=== PATIENT | male | born 1990 | race Caucasian/White ===

== ENCOUNTER 2016-08-12 20:03 | Emergency (ER) | payer MEDICAID ==
[~2016-08-12] VITALS: Ht 182.9 cm; Wt 81.2 kg
[~2016-08-12 20:03] MED LIST: HYDR50TA13 PO; OXYC5TAB3 PO
[2016-08-12 22:11] VITALS: BP 133/73
== END 2016-08-12 22:13 | disposition home or self-care (01) ==
LOC: ED 21:50
DX: F51.01 Primary insomnia (principal)
CPT/HCPCS: 99283

== ENCOUNTER 2016-08-23 23:28 | Emergency (ER) | payer MEDICAID ==
[~2016-08-23] VITALS: Ht 182.9 cm; Wt 81.0 kg
[2016-08-23 23:29] VITALS: BP 137/96
[2016-08-24] MEDS ORDERED: OXYcodone/APAP 5/325MG TABLET ONE (00:23)
[2016-08-24] MEDS ORDERED: OXYcodone/APAP 5/325MG TABLET PO ONE (00:30)
== END 2016-08-24 00:33 | disposition home or self-care (01) ==
LOC: ED 23:59
DX: K04.7 Periapical abscess without sinus (principal)
CPT/HCPCS: 41800; 99284

== ENCOUNTER 2016-08-25 11:20 | Emergency (ER) | payer MEDICAID ==
[~2016-08-25] VITALS: Ht 182.9 cm; Wt 77.8 kg
[2016-08-25 11:22] VITALS: BP 134/88
[2016-08-25] MEDS ORDERED: BUPIVACAINE/PF 0.5% ONE (11:42)
== END 2016-08-25 12:20 | disposition home or self-care (01) ==
LOC: ED 12:07
DX: K04.7 Periapical abscess without sinus (principal); Z87.891 Personal history of nicotine dependence; Z90.49 Acquired absence of other specified parts of digestive tract
CPT/HCPCS: 41800; 99283

== ENCOUNTER 2016-09-12 09:16 | Observation (INO) | payer MEDICAID ==
[~2016-09-12] VITALS: Ht 182.9 cm; Wt 74.9 kg
[2016-09-12 10:01] LABS: ASPARTATE AMINO TRANSFERASE 20 U/L (15-37); BLOOD UREA NITROGEN 11 mg/dL (7-18)
[2016-09-12 10:06] LABS: ACETAMINOPHEN < 2 mcg/mL (10-30)
[2016-09-12 11:08] LABS: DAU SCREEN DISCLAIMER
[2016-09-12 12:57] VITALS: BP 124/76
[2016-09-12] MEDS ORDERED: ACETAMINOPHEN 325 MG TABLET PO PRN (16:30)
[2016-09-12] MEDS ORDERED: LORazepam 1MG TABLET PO PRN (16:30)
[2016-09-12] MEDS ORDERED: ENOXAPARIN 40 MG/0.4 ML SQ SCH (16:30)
[2016-09-12] MEDS ORDERED: NICOTINE 7 MG/24 HR PATCH.TD24 TD SCH (16:30)
[2016-09-13] MEDS ORDERED: BUPROPION SR 150 MG TABLET PO SCH (09:00)
== END 2016-09-12 20:14 ==
LOC: ED 10:54 → EDIP 12:52
PROVIDERS: ADMIT Internal Medicine; ATTEND Internal Medicine
DX: R45.851 Suicidal ideations (principal); F19.10 Other psychoactive substance abuse, uncomplicated; F11.20 Opioid dependence, uncomplicated; F41.0 Panic disorder [episodic paroxysmal anxiety]; F41.9 Anxiety disorder, unspecified; F17.210 Nicotine dependence, cigarettes, uncomplicated; Z59.0 Homelessness
CPT/HCPCS: 36415; 80053; 80307; 80329; 85025; 99285; G0378; G0480

== ENCOUNTER 2016-09-24 16:45 | Observation (INO) | payer MEDICAID ==
[~2016-09-24] VITALS: Ht 172.7 cm; Wt 75.0 kg
[2016-09-24 19:31] LABS: HEMATOCRIT 47.5 % (39.2-51.8); HEMOGLOBIN 15.7 g/dL (13.7-18.0); WHITE BLOOD COUNT 10.3 x10^3/uL (3.4-10)
[2016-09-24 19:45] LABS: ASPARTATE AMINO TRANSFERASE 19 U/L (15-37); BLOOD UREA NITROGEN 12 mg/dL (7-18)
[2016-09-24 19:48] LABS: ACETAMINOPHEN < 2 mcg/mL (10-30)
[2016-09-24 20:19] LABS: DAU SCREEN DISCLAIMER
[2016-09-24] MEDS ORDERED: ONDANSETRON ODT 4 MG PO PRN (21:00)
[2016-09-24] MEDS ORDERED: POLYETHYLENE GLYCOL 17 GM PACKET PO PRN (21:00)
[2016-09-24] MEDS ORDERED: DOCUSATE 100 MG CAPSULE PO PRN (21:00)
[2016-09-24] MEDS ORDERED: NICOTINE 7 MG/24 HR PATCH.TD24 TD SCH ×2 (21:00)
[2016-09-24] MEDS ORDERED: BISACODYL 10 MG SUPP PR PRN (21:00)
[2016-09-24] MEDS ORDERED: LORazepam 1MG TABLET ONE (21:28)
[2016-09-24] MEDS ORDERED: LORazepam 1MG TABLET PO PRN ×2 (21:30)
[2016-09-24] MEDS ORDERED: LORazepam 2 MG/ML, 1ML IM PRN ×2 (21:30)
[2016-09-24] MEDS ORDERED: TEMAZEPAM 15 MG CAPSULE PO PRN (21:30)
[2016-09-24 22:29] VITALS: BP 95/60
[2016-09-25 08:00] VITALS: BP 101/56
[2016-09-25] MEDS ORDERED: LORazepam 0.5MG TABLET ONE ×2 (09:48→16:51)
[2016-09-25] MEDS: LORazepam 1MG TABLET PO PRN ×2 (09:49→16:53)
[2016-09-25] MEDS ORDERED: LORazepam 2 MG/ML, 1ML IM PRN (13:30)
[2016-09-25] MEDS ORDERED: NICOTINE 7 MG/24 HR PATCH.TD24 TD SCH (19:00)
[2016-09-25 19:27] VITALS: BP 113/62
[2016-09-26 08:48] VITALS: BP 116/67
[2016-09-26] MEDS: LORazepam 1MG TABLET PO PRN ×2 (09:41→15:35)
== END 2016-09-26 16:43 ==
LOC: ED 17:59 → EDIP 18:52 → 3E 22:09
PROVIDERS: ADMIT Internal Medicine; ATTEND Internal Medicine
DX: R45.851 Suicidal ideations (principal); F15.10 Other stimulant abuse, uncomplicated; F12.90 Cannabis use, unspecified, uncomplicated; F32.9 Major depressive disorder, single episode, unspecified; F41.1 Generalized anxiety disorder; F17.210 Nicotine dependence, cigarettes, uncomplicated; Z59.0 Homelessness
CPT/HCPCS: 36415; 80053; 80307; 80329; 81001; 84439; 84443; 85025; 99285; G0378; G0480

== ENCOUNTER 2017-06-04 16:18 | Emergency (ER) | payer MEDICAID ==
[~2017-06-04] VITALS: Ht 182.9 cm; Wt 108.0 kg
[~2017-06-04 16:18] MED LIST changes: +HALO5TAB5 PO; +QUET200T4 PO
[2017-06-04 16:20] VITALS: BP 144/80
[2017-06-04] MEDS ORDERED: IBUPROFEN 800 MG TABLET PO STA (16:40)
[2017-06-04] MEDS ORDERED: IBUPROFEN 200 MG TABLET ONE (16:43)
== END 2017-06-04 17:21 | disposition home or self-care (01) ==
LOC: ED 17:20
DX: K08.89 Other specified disorders of teeth and supporting structures (principal); F17.210 Nicotine dependence, cigarettes, uncomplicated; Z90.49 Acquired absence of other specified parts of digestive tract
CPT/HCPCS: 99283

== ENCOUNTER 2017-06-08 07:47 | Emergency (ER) | payer MEDICAID ==
[~2017-06-08] VITALS: Ht 182.9 cm; Wt 107.0 kg
[2017-06-08 07:49] VITALS: BP 134/86
== END 2017-06-08 08:31 | disposition home or self-care (01) ==
LOC: ED 08:21
DX: K02.9 Dental caries, unspecified (principal); F17.210 Nicotine dependence, cigarettes, uncomplicated
CPT/HCPCS: 99283

== ENCOUNTER 2018-05-31 09:17 | Day surgery (SDC) | payer MEDICAID ==
[~2018-05-31] VITALS: Ht 182.9 cm; Wt 101.7 kg
[~2018-05-31 09:17] MED LIST changes: +BACITRACIN OINT 500U/GM, 15 GM ONE; +DIVA500T2 PO; +EPINEPHRINE TOPICAL SOLN 1 MG/ML, 30ML ONE; +FLUORESCEIN SODIUM 500 MG/5 ML ONE; +LIDOCAINE 1%-EPI 1:100K, 20ML ONE; +OXYMETAZOLINE NASAL SPRAY 0.05%, 15ML ONE
[2018-05-31] MEDS ORDERED: LACTATED RINGERS 1,000 ML IV SCH (09:41)
[2018-05-31] MEDS ORDERED: NONE PER PT (09:41)
[2018-05-31] MEDS ORDERED: FENTANYL PF 250 MCG/5ML ONE (09:55)
[2018-05-31] MEDS ORDERED: MIDAZOLAM 1 MG/ML, 2ML ONE (09:55)
[2018-05-31] MEDS ORDERED: GABAPENTIN 300 MG CAPSULE PO ONE (10:00)
[2018-05-31 10:09] VITALS: BP 122/83
[2018-05-31] MEDS ORDERED: CLINDAMYCIN 150 MG/ML, 6ML ONE (10:22)
[2018-05-31] MEDS ORDERED: SUGAMMADEX 200 MG/2 ML IVPush ONE (10:22)
[2018-05-31] MEDS ORDERED: PROPOFOL 10 MG/ML, 20ML ONE (10:26)
[2018-05-31] MEDS ORDERED: ONDANSETRON 2MG/ML, 2ML ONE (10:26)
[2018-05-31] MEDS ORDERED: DEXAMETHASONE 4 MG/ML, 1ML ONE (10:26)
[2018-05-31] MEDS ORDERED: METOPROLOL 1 MG/ML, 5ML ONE (10:26)
[2018-05-31] MEDS ORDERED: ACETAMINOPHEN 325 MG TABLET PO PRN (11:00)
[2018-05-31] MEDS ORDERED: MEPERIDINE/PF 25MG/0.5ML IVPush PRN (11:00)
[2018-05-31] MEDS ORDERED: HYDROmorphone 2 MG/ML, 1ML IVPush PRN (11:00)
[2018-05-31] MEDS ORDERED: HALOPERIDOL 5 MG/ML IV PRN (11:00)
[2018-05-31] MEDS ORDERED: OXYcodone 5 MG/5 ML ORAL.SOL UDC PO PRN (11:00)
[2018-05-31] MEDS ORDERED: PROMETHAZINE 25 MG/ML, 1ML IV PRN (11:00)
[2018-05-31] MEDS ORDERED: LORazepam 2 MG/ML, 1ML IVPush PRN (11:00)
[2018-05-31] MEDS ORDERED: MEPERIDINE/PF 50 MG/ML ONE (12:30)
[2018-05-31] MEDS ORDERED: FENTANYL PF 100 MCG/2ML ONE (12:51)
[2018-05-31] MEDS ORDERED: OXYcodone 5 MG/5 ML ORAL.SOL UDC ONE (12:51)
[2018-05-31] MEDS: FENTANYL PF 100 MCG/2ML IV PRN ×2 (13:05→13:19)
== END 2018-05-31 15:45 | disposition home or self-care (01) ==
LOC: OUT 09:17
PROVIDERS: ATTEND Otolaryngology
DX: J32.0 Chronic maxillary sinusitis (principal); J32.1 Chronic frontal sinusitis; J32.2 Chronic ethmoidal sinusitis; J32.4 Chronic pansinusitis; K04.4 Acute apical periodontitis of pulpal origin; J34.3 Hypertrophy of nasal turbinates; G43.909 Migraine, unspecified, not intractable, without status migrainosus; F41.9 Anxiety disorder, unspecified; Z87.891 Personal history of nicotine dependence
CPT/HCPCS: 30140; 31240; 31253; 31257; 31267; 61782; 87070; 87075; 87205; 88304; 88305; 88311; J1100; J2175; J2250; J2405; J2704; J3010; J3490; J7120

== ENCOUNTER 2019-02-28 09:35 | Inpatient (IN) | payer MEDICAID ==
[~2019-02-28] VITALS: Ht 182.9 cm; Wt 92.9 kg
[~2019-02-28 09:35] MED LIST changes: -BACITRACIN OINT 500U/GM, 15 GM ONE; -EPINEPHRINE TOPICAL SOLN 1 MG/ML, 30ML ONE; -FLUORESCEIN SODIUM 500 MG/5 ML ONE; -LIDOCAINE 1%-EPI 1:100K, 20ML ONE; +NONE PER PT; -OXYMETAZOLINE NASAL SPRAY 0.05%, 15ML ONE
[2019-02-28 09:44] VITALS: BP 122/76
[2019-02-28] MEDS ORDERED: BISACODYL 10 MG SUPP PR PRN (10:00)
[2019-02-28] MEDS ORDERED: ONDANSETRON ODT 4 MG PO PRN (10:00)
[2019-02-28] MEDS ORDERED: DOCUSATE 100 MG CAPSULE PO PRN (10:00)
[2019-02-28] MEDS ORDERED: POLYETHYLENE GLYCOL 17 GM PACKET PO PRN (10:00)
[2019-02-28 11:26] LABS: CHOL/HDL RATIO 4.3; FREE T4 (FREE THYROXINE) 1.46 ng/dL (0.76-1.46); LDL/HDL RATIO 2.8 (0.5-3.0)
[2019-02-28 12:13] VITALS: BP 122/76
[2019-02-28] MEDS: NICOTINE GUM 2 MG BC PRN ×4 (13:49→20:33)
[2019-02-28 15:15] LABS: CULTURE INDICATED? YES; MICROSCOPIC INDICATED
[2019-02-28] MEDS ORDERED: QUETIAPINE 25MG TABLET PO SCH (16:00)
[2019-02-28] MEDS: BUPRENORPHINE/NALOXONE 2-0.5MG SL SCH ×2 (16:34→20:32)
[2019-02-28 19:15] VITALS: BP 104/66
[2019-02-28] MEDS: QUETIAPINE 100MG TABLET PO SCH (20:33)
[2019-03-01] MEDS: NICOTINE GUM 2 MG BC PRN ×8 (01:19→23:26)
[2019-03-01] MEDS: ACETAMINOPHEN 325 MG TABLET PO PRN ×2 (05:11→08:34)
[2019-03-01 05:18] LABS: BASOPHILS # (AUTO) 0.05 x10^3/uL (0-0.1); BASOPHILS % (AUTO) 1 % (0-1); EOSINOPHILS # (AUTO) 0.42 x10^3/uL (0-0.4); EOSINOPHILS % (AUTO) 5 % (1-7); LYMPHOCYTES # (AUTO) 2.88 x10^3/uL (1-3.4); LYMPHOCYTES % (AUTO) 32 % (22-44); MD NO; MEAN CORPUSCULAR HEMOGLOBIN 30.5 pg (27.5-34.5); MEAN CORPUSCULAR HGB CONC 33.5 g/dL (33.2-36.2); MEAN CORPUSCULAR VOLUME 91.1 fL (81-97); MEAN PLATELET VOLUME 7.1 fL (7.4-10.4); MONOCYTES # (AUTO) 0.47 x10^3/uL (0.2-0.8); MONOCYTES % (AUTO) 5 % (2-9); NEUTROPHILS # (AUTO) 5.24 x10^3/uL (1.8-6.8); NEUTROPHILS % (AUTO) 58 % (42-75); PLATELET COUNT 254 x10^3/uL (130-400); RED BLOOD COUNT 5.37 x10^6/uL (4.38-5.82); RED CELL DISTRIBUTION WIDTH 13.3 % (9.4-14.8)
[2019-03-01 05:29] LABS: CHLORIDE 106 mmol/L (98-107)
[2019-03-01 05:33] LABS: ANION GAP 4 mmol/L (5-15); CALCIUM 9.3 mg/dL (8.5-10.1); CREATININE 0.83 mg/dL (0.7-1.3)
[2019-03-01 07:30] VITALS: BP 113/71
[2019-03-01] MEDS: QUETIAPINE 25MG TABLET PO SCH ×3 (08:34→17:36)
[2019-03-01] MEDS: BUPRENORPHINE/NALOXONE 2-0.5MG SL SCH ×2 (08:34→20:03)
[2019-03-01 10:02] VITALS: BP 109/72
[2019-03-01] MEDS: DICYCLOMINE 20 MG TABLET PO SCH ×2 (18:29→20:04)
[2019-03-01 19:15] VITALS: BP 130/78
[2019-03-01] MEDS: QUETIAPINE 100MG TABLET PO SCH (20:04)
[2019-03-02] MEDS: NICOTINE GUM 2 MG BC PRN ×6 (03:46→20:07)
[2019-03-02 07:49] VITALS: BP 107/74
[2019-03-02] MEDS: BUPRENORPHINE/NALOXONE 2-0.5MG SL SCH ×2 (08:38→20:08)
[2019-03-02] MEDS: QUETIAPINE 25MG TABLET PO SCH ×3 (08:38→16:22)
[2019-03-02] MEDS: DICYCLOMINE 20 MG TABLET PO SCH ×3 (08:43→20:12)
[2019-03-02 19:56] VITALS: BP 110/76
[2019-03-02] MEDS: QUETIAPINE 100MG TABLET PO SCH (20:07)
[2019-03-03] MEDS: NICOTINE GUM 2 MG BC PRN ×8 (04:04→22:24)
[2019-03-03 07:37] VITALS: BP 100/62
[2019-03-03] MEDS: BUPRENORPHINE/NALOXONE 2-0.5MG SL SCH ×2 (08:34→20:23)
[2019-03-03] MEDS: QUETIAPINE 25MG TABLET PO SCH ×3 (08:36→17:16)
[2019-03-03] MEDS: DICYCLOMINE 20 MG TABLET PO SCH ×3 (08:36→20:23)
[2019-03-03 19:44] VITALS: BP 110/68
[2019-03-03] MEDS: QUETIAPINE 100MG TABLET PO SCH (20:22)
[2019-03-04] MEDS: NICOTINE GUM 4 MG BC PRN ×8 (03:42→22:55)
[2019-03-04 07:26] VITALS: BP 112/72
[2019-03-04] MEDS: DICYCLOMINE 20 MG TABLET PO SCH ×3 (08:31→20:27)
[2019-03-04] MEDS: BUPRENORPHINE/NALOXONE 2-0.5MG SL SCH ×2 (08:31→20:32)
[2019-03-04] MEDS: QUETIAPINE 25MG TABLET PO SCH ×3 (08:31→17:18)
[2019-03-04 19:15] VITALS: BP 124/86
[2019-03-04] MEDS: QUETIAPINE 100MG TABLET PO SCH (20:27)
[2019-03-04] MEDS: ACETAMINOPHEN 325 MG TABLET PO PRN (20:28)
[2019-03-05] MEDS: NICOTINE GUM 4 MG BC PRN ×9 (01:16→21:31)
[2019-03-05 07:20] VITALS: BP 118/77
[2019-03-05] MEDS: BUPRENORPHINE/NALOXONE 2-0.5MG SL SCH ×2 (09:03→19:45)
[2019-03-05] MEDS: QUETIAPINE 25MG TABLET PO SCH ×3 (09:04→17:01)
[2019-03-05] MEDS: DICYCLOMINE 20 MG TABLET PO SCH ×3 (09:10→19:44)
[2019-03-05 19:42] VITALS: BP 111/72
[2019-03-05] MEDS: QUETIAPINE 100MG TABLET PO SCH (19:44)
[2019-03-05] MEDS: CARBAMAZEPINE XR 200 MG TABLET PO SCH (19:44)
[2019-03-06] MEDS: NICOTINE GUM 4 MG BC PRN ×8 (01:33→21:59)
[2019-03-06] MEDS: ACETAMINOPHEN 325 MG TABLET PO PRN (05:58)
[2019-03-06 07:50] VITALS: BP 122/78
[2019-03-06] MEDS: DICYCLOMINE 20 MG TABLET PO SCH ×3 (08:23→20:05)
[2019-03-06] MEDS: CARBAMAZEPINE XR 200 MG TABLET PO SCH ×2 (08:23→20:05)
[2019-03-06] MEDS: BUPRENORPHINE/NALOXONE 2-0.5MG SL SCH ×2 (08:23→20:05)
[2019-03-06] MEDS: QUETIAPINE 25MG TABLET PO SCH ×3 (08:23→15:51)
[2019-03-06 19:41] VITALS: BP 124/86
[2019-03-06] MEDS: QUETIAPINE 100MG TABLET PO SCH (20:05)
[2019-03-07] MEDS: NICOTINE GUM 4 MG BC PRN ×8 (00:25→21:16)
[2019-03-07 07:45] VITALS: BP 117/73
[2019-03-07] MEDS: DICYCLOMINE 20 MG TABLET PO SCH ×3 (08:36→21:15)
[2019-03-07] MEDS: BUPRENORPHINE/NALOXONE 2-0.5MG SL SCH ×2 (08:36→21:18)
[2019-03-07] MEDS: QUETIAPINE 25MG TABLET PO SCH ×2 (08:36→12:38)
[2019-03-07] MEDS: CARBAMAZEPINE XR 200 MG TABLET PO SCH ×2 (08:38→21:16)
[2019-03-07] MEDS: QUETIAPINE 100MG TABLET PO SCH ×2 (16:21→21:16)
[2019-03-07 19:57] VITALS: BP 100/58
[2019-03-07] MEDS: GABAPENTIN 300 MG CAPSULE PO SCH (21:15)
[2019-03-08] MEDS: NICOTINE GUM 4 MG BC PRN ×3 (06:03→17:36)
[2019-03-08 07:18] VITALS: BP 127/80
[2019-03-08] MEDS: QUETIAPINE 100MG TABLET PO SCH ×4 (08:36→20:19)
[2019-03-08] MEDS: DICYCLOMINE 20 MG TABLET PO SCH ×3 (08:36→20:19)
[2019-03-08] MEDS: GABAPENTIN 300 MG CAPSULE PO SCH ×3 (08:37→20:19)
[2019-03-08] MEDS: CARBAMAZEPINE XR 200 MG TABLET PO SCH ×2 (08:37→20:20)
[2019-03-08] MEDS: BUPRENORPHINE/NALOXONE 2-0.5MG SL SCH ×2 (08:41→20:19)
[2019-03-08] MEDS ORDERED: BUTALB/APAP/CAFFEINE 50MG/325MG/40MG PO ONE (15:00)
[2019-03-08 19:00] VITALS: BP 114/75
[2019-03-09] MEDS: NICOTINE GUM 4 MG BC PRN ×3 (01:59→17:38)
[2019-03-09 07:10] VITALS: BP 110/71
[2019-03-09] MEDS: GABAPENTIN 300 MG CAPSULE PO SCH ×3 (08:30→19:57)
[2019-03-09] MEDS: DICYCLOMINE 20 MG TABLET PO SCH ×3 (08:30→19:56)
[2019-03-09] MEDS: QUETIAPINE 100MG TABLET PO SCH ×4 (08:31→19:56)
[2019-03-09] MEDS: CARBAMAZEPINE XR 200 MG TABLET PO SCH ×2 (08:31→19:57)
[2019-03-09] MEDS: BUPRENORPHINE/NALOXONE 2-0.5MG SL SCH ×2 (08:31→19:56)
[2019-03-09] MEDS ORDERED: NICOTINE GUM 4 MG BC PRN (18:30)
[2019-03-09 19:15] VITALS: BP 112/77
[2019-03-09] MEDS: NICOTINE GUM 2 MG BC PRN (20:38)
[2019-03-10] MEDS: NICOTINE GUM 2 MG BC PRN ×5 (04:01→21:37)
[2019-03-10 07:07] VITALS: BP 112/76
[2019-03-10] MEDS: GABAPENTIN 300 MG CAPSULE PO SCH ×3 (08:32→19:32)
[2019-03-10] MEDS: BUPRENORPHINE/NALOXONE 2-0.5MG SL SCH ×2 (08:32→19:32)
[2019-03-10] MEDS: QUETIAPINE 100MG TABLET PO SCH ×4 (08:32→19:32)
[2019-03-10] MEDS: DICYCLOMINE 20 MG TABLET PO SCH ×3 (08:32→19:32)
[2019-03-10] MEDS: CARBAMAZEPINE XR 200 MG TABLET PO SCH ×2 (08:33→19:32)
[2019-03-10 17:14] VITALS: BP 119/78
[2019-03-10] MEDS: PROPRANOLOL 10 MG TABLET PO SCH (17:15)
[2019-03-10 19:32] VITALS: BP 107/74
[2019-03-11] MEDS: NICOTINE GUM 2 MG BC PRN ×6 (01:17→22:02)
[2019-03-11] MEDS: PROPRANOLOL 10 MG TABLET PO SCH ×2 (05:21→17:03)
[2019-03-11 07:25] VITALS: BP 110/75
[2019-03-11] MEDS: BUPRENORPHINE/NALOXONE 2-0.5MG SL SCH (08:07)
[2019-03-11] MEDS: QUETIAPINE 100MG TABLET PO SCH ×4 (08:07→20:05)
[2019-03-11] MEDS: CARBAMAZEPINE XR 200 MG TABLET PO SCH ×2 (08:07→20:05)
[2019-03-11] MEDS: GABAPENTIN 300 MG CAPSULE PO SCH ×3 (08:07→20:05)
[2019-03-11] MEDS: DICYCLOMINE 20 MG TABLET PO SCH ×3 (08:08→20:05)
[2019-03-11 17:01] VITALS: BP 99/65
[2019-03-11 18:06] VITALS: BP 104/72
[2019-03-11 19:45] VITALS: BP 93/56
[2019-03-12] MEDS: NICOTINE GUM 2 MG BC PRN ×5 (02:36→20:14)
[2019-03-12 06:20] VITALS: BP 117/83
[2019-03-12] MEDS: PROPRANOLOL 10 MG TABLET PO SCH ×2 (06:20→17:34)
[2019-03-12 07:34] VITALS: BP 104/70
[2019-03-12] MEDS: QUETIAPINE 100MG TABLET PO SCH ×4 (08:26→20:15)
[2019-03-12] MEDS: GABAPENTIN 300 MG CAPSULE PO SCH ×3 (08:26→20:17)
[2019-03-12] MEDS: DICYCLOMINE 20 MG TABLET PO SCH ×3 (08:26→20:15)
[2019-03-12] MEDS: ACETAMINOPHEN 325 MG TABLET PO PRN (08:27)
[2019-03-12] MEDS: CARBAMAZEPINE XR 200 MG TABLET PO SCH ×2 (08:27→20:15)
[2019-03-12] MEDS: BUPRENORPHINE/NALOXONE 2-0.5MG SL SCH (08:27)
[2019-03-12] MEDS ORDERED: BUPROPION SR 150 MG TABLET PO SCH (09:00)
[2019-03-12] MEDS ORDERED: BUPR-173 PO (14:30)
[2019-03-12] MEDS ORDERED: CARB200T2 PO (14:30)
[2019-03-12] MEDS ORDERED: QUET100T PO ×2 (14:30)
[2019-03-12] MEDS ORDERED: GABA300C10 PO (14:30)
[2019-03-12] MEDS ORDERED: PROP10TA16 PO (14:30)
[2019-03-12] MEDS: BUPROPION SR 100 MG TABLET PO SCH ×2 (14:52→20:15)
[2019-03-12 17:41] VITALS: BP 108/72
[2019-03-12 20:11] VITALS: BP 118/75
[2019-03-13] MEDS: NICOTINE GUM 2 MG BC PRN ×6 (01:13→23:10)
[2019-03-13] MEDS: PROPRANOLOL 10 MG TABLET PO SCH ×2 (05:18→18:30)
[2019-03-13 07:29] VITALS: BP 117/78
[2019-03-13] MEDS: BUPROPION SR 100 MG TABLET PO SCH ×2 (08:14→14:14)
[2019-03-13] MEDS: DICYCLOMINE 20 MG TABLET PO SCH ×3 (08:14→20:20)
[2019-03-13] MEDS: BUPRENORPHINE/NALOXONE 2-0.5MG SL SCH (08:14)
[2019-03-13] MEDS: QUETIAPINE 100MG TABLET PO SCH ×4 (08:15→20:21)
[2019-03-13] MEDS: CARBAMAZEPINE XR 200 MG TABLET PO SCH ×2 (08:15→20:20)
[2019-03-13] MEDS: GABAPENTIN 300 MG CAPSULE PO SCH ×3 (08:15→20:21)
[2019-03-13] MEDS: ACETAMINOPHEN 325 MG TABLET PO PRN (13:54)
[2019-03-13 18:18] VITALS: BP 113/74
[2019-03-13 19:00] VITALS: BP 114/77
[2019-03-14] MEDS: NICOTINE GUM 2 MG BC PRN ×2 (03:24→07:34)
[2019-03-14] MEDS: PROPRANOLOL 10 MG TABLET PO SCH (05:36)
[2019-03-14 07:23] VITALS: BP 122/79
[2019-03-14] MEDS: DICYCLOMINE 20 MG TABLET PO SCH (07:58)
[2019-03-14] MEDS: GABAPENTIN 300 MG CAPSULE PO SCH (07:58)
[2019-03-14] MEDS: BUPROPION SR 100 MG TABLET PO SCH (07:58)
[2019-03-14] MEDS: BUPRENORPHINE/NALOXONE 2-0.5MG SL SCH (07:58)
[2019-03-14] MEDS: QUETIAPINE 100MG TABLET PO SCH (07:58)
[2019-03-14] MEDS: CARBAMAZEPINE XR 200 MG TABLET PO SCH (07:58)
== END 2019-03-14 08:00 | disposition home or self-care (01) | DRG 753 ==
LOC: 3E 09:35
PROVIDERS: ADMIT Psychiatry & Neurology Psychosomatic Medicine; ATTEND Psychiatry & Neurology Psychosomatic Medicine
DX: F31.5 Bipolar disorder, current episode depressed, severe, with psychotic features (principal); F11.20 Opioid dependence, uncomplicated; F15.20 Other stimulant dependence, uncomplicated; J32.9 Chronic sinusitis, unspecified; F12.90 Cannabis use, unspecified, uncomplicated; F41.1 Generalized anxiety disorder; G89.29 Other chronic pain; Z79.899 Other long term (current) drug therapy; Z91.5 Personal history of self-harm; Z87.891 Personal history of nicotine dependence
CPT/HCPCS: J0572 ×15; 36415; 80048; 80061; 81001; 82607; 84439; 84443; 85025; 87086; 93005

== ENCOUNTER 2019-05-18 08:36 | Emergency (ER) | payer MEDICAID ==
[~2019-05-18] VITALS: Ht 182.9 cm; Wt 89.1 kg
[~2019-05-18 08:36] MED LIST changes: +BUPR-173 PO; +CARB200T2 PO; +GABA300C10 PO; -HYDR50TA13 PO; +HYDR50TA99 PO; +PROP10TA16 PO; +QUET100T PO
[2019-05-18 08:38] VITALS: BP 128/78
--- NOTE | 2019-05-18 09:26 | NUR ---
PT UP FOR RECHECK BY JONO.
--- NOTE | 2019-05-18 09:29 | NUR ---
ERMD AT BEDSIDE RECHECKING PT.
--- NOTE | 2019-05-18 09:38 | NUR ---
PT DISCHARGED HOME IN A STABLE CONDITION. DC INSTRUCTIONS WERE DISCUSSED WITH PT. PT DENIES ANY FURTHER QUESTIONS OR CONCERNS. PT AMBULATED WITH RN TO DC DESK. STEADY GAIT.
== END 2019-05-18 09:39 | disposition home or self-care (01) ==
LOC: ED 09:20
DX: S80.11XA Contusion of right lower leg, initial encounter (principal); W18.30XA Fall on same level, unspecified, initial encounter; Y93.89 Activity, other specified; Y92.009 Unspecified place in unspecified non-institutional (private) residence as the place of occurrence of the external cause; Y99.8 Other external cause status
CPT/HCPCS: 99283

== ENCOUNTER 2019-10-08 18:08 | Emergency (ER) | payer MEDICAID ==
[~2019-10-08] VITALS: Ht 182.9 cm; Wt 83.0 kg
--- NOTE | 2019-10-08 18:55 | NUR ---
THIS IS A 29 YO M W/ C/O INCREASED ANXIETY AND PANIC ATTACKS X1 WEEK. PT REPORTS HX OF ANXIETY. DENIES ANY HOME MEDS AT THIS TIME. DENIES SI/HI. PT RESTING ON [employer] W/ CALL LIGHT IN REACH, FAMILY AT BEDSIDE. RESP EVEN AND UNLABORED, GRECIAN.
--- NOTE | 2019-10-08 19:07 | NUR ---
REPORT GIVEN TO VIRIDIANA BROOKS. PT RESTING ON [employer] W/ CALL LIGHT IN REACH, RESP EVEN AND UNLABORED, GRECIAN.
[2019-10-08] MEDS ORDERED: LORazepam 1MG TABLET PO ONE (19:30)
--- NOTE | 2019-10-08 19:39 | NUR ---
REPORT FROM CECILIA ELLSWORTH. PT SITTING UP IN [facility]. DENIES NEEDS. FRIEND AT BEDSIDE.
--- NOTE | 2019-10-08 19:50 | NUR ---
Break RN: assumed care of pt on behalf of primary RN for lunch break only. pt medicated per order. pt made aware hat he cannot drive after ativan. pt vebalized understanding. family member at bedside will drive him home
[2019-10-08] MEDS ORDERED: LORazepam 1MG TABLET ONE (19:52)
[2019-10-08 19:55] VITALS: BP 125/79
--- NOTE | 2019-10-08 20:23 | NUR ---
PT REPORTS IMPROVED S/S AFTER MEDICATIONS. DC EDUCATION PROVIDED, PT DEMONSTRATES UNDERSTANDING. FRIEND TO TRANSPORT PT HOME.
== END 2019-10-08 20:25 | disposition home or self-care (01) ==
LOC: ED 20:05
DX: F41.1 Generalized anxiety disorder (principal); F17.210 Nicotine dependence, cigarettes, uncomplicated; Z72.9 Problem related to lifestyle, unspecified; R00.0 Tachycardia, unspecified; Z90.49 Acquired absence of other specified parts of digestive tract
CPT/HCPCS: 99283; 99406

== ENCOUNTER 2019-10-26 16:09 | Emergency (ER) | payer MEDICAID ==
[~2019-10-26] VITALS: Ht 180.3 cm; Wt 85.0 kg
--- NOTE | 2019-10-26 16:24 | NUR ---
PT AMBULATORY TO ROOM 3 W/ C/O SA LAST NIGHT W/ PILLS AND HEROIN. STATES HE DOESN'T KNOW WHAT PILLS THEY WERE HE JUST TOOK WHATEVER HE HAD AVAILABLE. STATES HX SAME IN THE PAST. STATES HE WAS SEEN HERE RECENTLY FOR ANXIETY; ISSUES W/ FAMILY AND WANTED TO END IT. HX SUICIDAL THOUGHTS W/ SA ATTEMPT W/ HEROIN IN THE PAST. PT RESTING ON GURNEY. NADN. SITTER PLACED AT BEDSIDE. ROOM SECURED. PERSONAL BELONGINGS BAG (2 OF 2) PLACED IN SECURE LOCKER.
--- NOTE | 2019-10-26 16:42 | NUR ---
UA COLLECTED, LABELED, AND WALKED TO LAB
--- NOTE | 2019-10-26 17:32 | NUR ---
PT PROVIDED W/ SI DINNER TRAY. SITTER REMAINS AT BEDSIDE. ROOM REMAINS SECURE.
[2019-10-26 17:34] LABS: BASOPHILS # (AUTO) 0.03 x10^3/uL (0-0.1); BASOPHILS % (AUTO) 0 % (0-1); EOSINOPHILS # (AUTO) 0.21 x10^3/uL (0-0.4); EOSINOPHILS % (AUTO) 2 % (1-7); LYMPHOCYTES # (AUTO) 2.38 x10^3/uL (1-3.4); LYMPHOCYTES % (AUTO) 26 % (22-44); MD NO; MEAN CORPUSCULAR HEMOGLOBIN 29.8 pg (27.5-34.5); MEAN CORPUSCULAR HGB CONC 33.3 g/dL (33.2-36.2); MEAN CORPUSCULAR VOLUME 89.5 fL (81-97); MEAN PLATELET VOLUME 6.5 fL (7.4-10.4); MONOCYTES # (AUTO) 0.22 x10^3/uL (0.2-0.8); MONOCYTES % (AUTO) 2 % (2-9); NEUTROPHILS # (AUTO) 6.24 x10^3/uL (1.8-6.8); NEUTROPHILS % (AUTO) 69 % (42-75); PLATELET COUNT 375 x10^3/uL (130-400); RED BLOOD COUNT 5.02 x10^6/uL (4.38-5.82); RED CELL DISTRIBUTION WIDTH 14.7 % (9.4-14.8)
--- NOTE | 2019-10-26 17:45 | NUR ---
ESTUARDO, PSYCH AUTOMOTIVE SOFTWARE ENGINEER AT BEDSIDE FOR EVAL.
[2019-10-26 17:46] LABS: ALANINE AMINOTRANSFERASE 39 U/L (12-78); ALBUMIN 3.3 g/dL (3.4-5.0); ANION GAP 5 mmol/L (5-15); CALCIUM 9.3 mg/dL (8.5-10.1); CHLORIDE 100 mmol/L (98-107); CREATININE 0.74 mg/dL (0.7-1.3)
[2019-10-26] MEDS ORDERED: LORazepam 1MG TABLET ONE (17:46)
[2019-10-26 17:48] LABS: ALKALINE PHOSPHATASE 109 U/L (45-117); BILIRUBIN,TOTAL 0.4 mg/dL (0.2-1.0); SALICYLATE LEVEL < 1.7 mg/dL (2.8-20.0); TOTAL PROTEIN 7.3 g/dL (6.4-8.2)
--- NOTE | 2019-10-26 17:49 | NUR ---
REFUSED BY [facility]
[2019-10-26] MEDS ORDERED: LORazepam 1MG TABLET PO ONE (18:00)
[2019-10-26 18:12] LABS: AMPHETAMINE SCREEN, URINE Positive (Negative); BARBITURATE SCREEN, URINE Negative (Negative); BENZODIAZEPINE SCREEN, URINE Negative (Negative); CANNABINOID SCREEN, URINE Positive (Negative); COCAINE SCREEN, URINE Positive (Negative); METHADONE SCREEN, URINE Negative (Negative); OPIATE SCREEN, URINE Positive (Negative)
--- NOTE | 2019-10-26 19:00 | NUR ---
REPORT GIVEN TO LUISA HIGHTOWER RN.
--- NOTE | 2019-10-26 19:01 | NUR ---
REPORT FROM ASHLEY BROOKS ASSUMING CARE OF PT
--- NOTE | 2019-10-26 19:28 | NUR ---
PT RESTING ON ISMA FLORIAN SITTER IN [facility] SAFETY
[2019-10-26 20:40] VITALS: BP 111/68
--- NOTE | 2019-10-26 20:40 | NUR ---
PT PROVIDED WITH BLANKETS AND PILLOW AND PHYSICAL AND SI REASSESSMENT COMPLETE
--- NOTE | 2019-10-26 21:16 | NUR ---
SANDRA OLSEN ACCEPTS PT DR. TASIA KAM.
--- NOTE | 2019-10-26 21:25 | NUR ---
REPORT TO SHIVANI BROOKS AT [facility] THEY WILL BE READY FOR HIM AROUND 0200. ALL QUESTIONS ADDRESSED TO HER SATISFACTION NO FURTHER QUESTIONS AT THIS TIME.
--- NOTE | 2019-10-26 21:47 | NUR ---
PT RESTING ON ISMA FLORIAN SITTER IN [facility] SAFETY
--- NOTE | 2019-10-26 22:32 | NUR ---
PT RESTING ON ISMA FLORIAN SITTER IN [facility] SAFETY
--- NOTE | 2019-10-26 23:34 | NUR ---
PT RESTING ON ISMA FLORIAN SITTER IN [facility] SAFETY
--- NOTE | 2019-10-27 00:24 | NUR ---
PT RESTING ON ISMA FLORIAN SITTER IN [facility] SAFETY
== END 2019-10-27 01:55 ==
LOC: ED 17:44
DX: R45.851 Suicidal ideations (principal); F32.9 Major depressive disorder, single episode, unspecified; Z90.49 Acquired absence of other specified parts of digestive tract; F17.200 Nicotine dependence, unspecified, uncomplicated
CPT/HCPCS: 36415; 80053; 80307; 85025; 99285

== ENCOUNTER 2020-01-24 13:25 | Emergency (ER) | payer MEDICAID ==
[~2020-01-24] VITALS: Ht 182.9 cm; Wt 77.0 kg
--- NOTE | 2020-01-24 13:57 | NUR ---
VSS. PT SLEEPING IN BED. IV FLUIDS INFUSING
[2020-01-24] MEDS ORDERED: NALOXONE 0.4 MG/ML, 1ML IVPush PRN (14:00)
[2020-01-24] MEDS ORDERED: SODIUM CHLORIDE 0.9% 1,000 ML IV ONE (14:00)
[2020-01-24 14:13] LABS: BASOPHILS % (AUTO) 1 % (0-1); EOSINOPHILS % (AUTO) 1 % (1-7); LYMPHOCYTES % (AUTO) 36 % (22-44); MEAN CORPUSCULAR HEMOGLOBIN 29.4 pg (27.5-34.5); MEAN CORPUSCULAR HGB CONC 34.1 g/dL (33.2-36.2); MEAN PLATELET VOLUME 6.7 fL (7.4-10.4); MONOCYTES % (AUTO) 7 % (2-9); NEUTROPHILS % (AUTO) 55 % (42-75); PLATELET COUNT 338 x10^3/uL (130-400); RED BLOOD COUNT 5.61 x10^6/uL (4.38-5.82); RED CELL DISTRIBUTION WIDTH 13.4 % (9.4-14.8)
[2020-01-24 14:17] LABS: ALANINE AMINOTRANSFERASE 15 U/L (12-78); ALBUMIN 3.7 g/dL (3.4-5.0); ANION GAP 4 mmol/L (5-15); CALCIUM 9.1 mg/dL (8.5-10.1); CHLORIDE 105 mmol/L (98-107); CREATININE 0.93 mg/dL (0.7-1.3)
[2020-01-24 14:19] LABS: ALKALINE PHOSPHATASE 126 U/L (45-117); BILIRUBIN,TOTAL 0.4 mg/dL (0.2-1.0)
--- NOTE | 2020-01-24 14:26 | NUR ---
vss. pt sleeping in bed.
[2020-01-24 14:29] LABS: MD NO
--- NOTE | 2020-01-24 15:40 | NUR ---
BREAK RN: PT RESTING ON GURNEY, RESP EVEN NON-LABORED, VSS. PT ARROUSES TO VERBAL STIMULI, SPARKS, DENIES PAIN. ORIENTED TO PERSON. RTN TO SLEEPING WHEN NOT STIMULATED. IVF INFUSING W/O DIFFICULTY
--- NOTE | 2020-01-24 15:54 | NUR ---
VSS. PT SLEEPING IN BED. STILL VERY MUCH UNDER THE INFLUENCE.
--- NOTE | 2020-01-24 16:55 | NUR ---
REPORT GIVEN TO CECILIA ANDERSON
--- NOTE | 2020-01-24 17:55 | NUR ---
PT AWAKE REQUESTING MEAL.
--- NOTE | 2020-01-24 18:06 | NUR ---
PT EATING MEAL PROVIDED. NO SIGNS OF DISTRESS.
[2020-01-24 18:31] VITALS: BP 110/69
[2020-01-25] MEDS ORDERED: BUPR100T8 PO (05:49)
[2020-01-25] MEDS ORDERED: CARB200C5 PO (05:49)
[2020-01-25] MEDS ORDERED: GABA-826 PO (05:51)
[2020-01-25] MEDS ORDERED: PROP10TA51 PO (05:52)
[2020-01-25] MEDS ORDERED: QUET25TA70 PO ×2 (05:54→05:56)
== END 2020-01-24 18:39 | disposition home or self-care (01) ==
LOC: ED 14:39
DX: T40.1X1A Poisoning by heroin, accidental (unintentional), initial encounter (principal); R94.31 Abnormal electrocardiogram [ECG] [EKG]; Z90.49 Acquired absence of other specified parts of digestive tract; Y92.89 Other specified places as the place of occurrence of the external cause
CPT/HCPCS: 36415; 80053; 80299; 80320; 80329; 85025; 93005; 96360; 99285; J7030; 99284; G0480

== ENCOUNTER 2020-01-24 19:40 | Emergency (ER) | payer MEDICAID ==
[~2020-01-24] VITALS: Ht 182.9 cm; Wt 82.8 kg
--- NOTE | 2020-01-24 20:01 | NUR ---
PT IS HERE FOR SI. PT IS HOMELESS AND HAS LOST BELONGINGS. VSS. PT SITTING IN CHAIR AND IS IN VIEW OF NURSES STATION WAITING FOR ROOM TO OPEN.
[2020-01-24 20:48] LABS: BASOPHILS % (AUTO) 1 % (0-1); EOSINOPHILS % (AUTO) 2 % (1-7); LYMPHOCYTES % (AUTO) 40 % (22-44); MEAN CORPUSCULAR HEMOGLOBIN 29.7 pg (27.5-34.5); MEAN PLATELET VOLUME 6.8 fL (7.4-10.4); MONOCYTES % (AUTO) 7 % (2-9); NEUTROPHILS % (AUTO) 49 % (42-75); PLATELET COUNT 345 x10^3/uL (130-400); RED BLOOD COUNT 5.65 x10^6/uL (4.38-5.82); RED CELL DISTRIBUTION WIDTH 13.8 % (9.4-14.8)
[2020-01-24 20:53] LABS: MD NO
[2020-01-24 20:54] LABS: ALBUMIN 3.7 g/dL (3.4-5.0); ANION GAP 7 mmol/L (5-15); CALCIUM 9.1 mg/dL (8.5-10.1); CHLORIDE 105 mmol/L (98-107); CREATININE 1.14 mg/dL (0.7-1.3)
--- NOTE | 2020-01-24 20:57 | NUR ---
PT AMBULATED TO BATHROOM AND GAVE URINE SAMPLE. UA SENT TO LAB. PT SITTING BACK IN CHAIR AND IN VIEW OF NURSES STATION
[2020-01-24 21:02] LABS: AMPHETAMINE SCREEN, URINE Positive (Negative); BARBITURATE SCREEN, URINE Negative (Negative); BENZODIAZEPINE SCREEN, URINE Negative (Negative); CANNABINOID SCREEN, URINE Positive (Negative); COCAINE SCREEN, URINE Negative (Negative); METHADONE SCREEN, URINE Negative (Negative); OPIATE SCREEN, URINE Positive (Negative)
--- NOTE | 2020-01-24 21:50 | NUR ---
ERP AT BEDSIDE FOR PATIENT EVALUATION.
[2020-01-24 22:50] VITALS: BP 113/76
--- NOTE | 2020-01-24 22:51 | NUR ---
pt to this RN's room at this time. care transferred. /2 belongings bags obtained, labelled and placed in locker. pt sitting up on gurney, provided pillow and warm blankets for comfort, hr decreased to the low 100s. provided meal for comfort, nad. denies additional questions or needs at this time. wctm.
--- NOTE | 2020-01-25 00:19 | NUR ---
pt nad, resting on hopsital bed, even and unlabored respirations, eyes closed, wctm. sitter in line of sight, si precautions in place.
--- NOTE | 2020-01-25 01:08 | NUR ---
TP: PACKET FAXED TO [facility]. [facility] REVIEWING INFO. ORDER FOR RAPID COVID SWAB PLACED.
--- NOTE | 2020-01-25 01:39 | NUR ---
pt swabbed and swab walked to lab, provided water and additional warm blankets, rn called for hospital bed. pt nad, resting on gurney, even and unlabored respirations, wctm. si precautions in place, sitter in line of sight.
--- NOTE | 2020-01-25 02:34 | NUR ---
REPORT CALLED TO ATTILA RN, PT CARE TO BE TRANSFERRED UPON ARRIVAL TO THE FLOOR, PT TO BE TRANSFERRED AT 0330. PT NAD, RESTING ON GURNEY, EYES CLOSED, WCTM. SI PRECAUTIONS IN PLACE, SITTER IN LINE OF SIGHT
--- NOTE | 2020-01-25 04:04 | NUR ---
pt transferred to u at this time. no belongings left in room or locker after transfer.
[2020-01-25] MEDS ORDERED: CARB200C5 PO (05:49)
[2020-01-25] MEDS ORDERED: BUPR100T8 PO (05:49)
[2020-01-25] MEDS ORDERED: GABA-826 PO (05:51)
[2020-01-25] MEDS ORDERED: PROP10TA51 PO (05:52)
[2020-01-25] MEDS ORDERED: QUET25TA70 PO ×2 (05:54→05:56)
== END 2020-01-25 04:05 ==
LOC: ED 23:34
DX: R45.851 Suicidal ideations (principal); R00.0 Tachycardia, unspecified; F32.9 Major depressive disorder, single episode, unspecified; F11.10 Opioid abuse, uncomplicated; F15.10 Other stimulant abuse, uncomplicated; F13.10 Sedative, hypnotic or anxiolytic abuse, uncomplicated; F17.210 Nicotine dependence, cigarettes, uncomplicated; Z90.49 Acquired absence of other specified parts of digestive tract
CPT/HCPCS: 36415; 80048; 80299; 80307; 80320; 80329; 82040; 84443; 85025; 87426; 93005; 99285; 99406; G0480

== ENCOUNTER 2020-01-25 01:34 | Inpatient (IN) | payer MEDICAID ==
[~2020-01-25] VITALS: Ht 182.9 cm; Wt 84.6 kg
[2020-01-25] MEDS ORDERED: POLYETHYLENE GLYCOL 17 GM PACKET PO PRN (02:30)
[2020-01-25] MEDS ORDERED: DOCUSATE 100 MG CAPSULE PO PRN (02:30)
[2020-01-25] MEDS ORDERED: ONDANSETRON ODT 4 MG PO PRN (02:30)
[2020-01-25] MEDS ORDERED: BISACODYL 10 MG SUPP PR PRN (02:30)
[2020-01-25 03:40] LABS: FREE T4 (FREE THYROXINE) 1.04 ng/dL (0.76-1.46)
[2020-01-25 04:07] VITALS: BP 107/56
[2020-01-25 04:21] VITALS: BP 107/56
[2020-01-25] MEDS ORDERED: CARB200C5 PO (05:49)
[2020-01-25] MEDS ORDERED: BUPR100T8 PO (05:49)
[2020-01-25] MEDS ORDERED: GABA-826 PO (05:51)
[2020-01-25] MEDS ORDERED: PROP10TA51 PO (05:52)
[2020-01-25] MEDS ORDERED: QUET25TA70 PO ×2 (05:54→05:56)
[2020-01-25 07:00] VITALS: BP 117/66
[2020-01-25] MEDS: HYDROXYZINE PAMOATE 25MG CAP PO PRN ×2 (08:22→20:59)
[2020-01-25] MEDS: ACETAMINOPHEN 325 MG TABLET PO PRN (08:22)
[2020-01-25] MEDS: BUPRENORPHINE/NALOXONE 2-0.5MG SL SCH ×2 (13:39→21:44)
[2020-01-25] MEDS: POTASSIUM CHLORIDE 20 MEQ TAB.ER.PRT PO SCH (17:25)
[2020-01-25] MEDS: NICOTINE GUM 4 MG BC PRN (17:37)
[2020-01-25 19:34] VITALS: BP 112/70
[2020-01-26 07:09] VITALS: BP 110/70
[2020-01-26] MEDS: POTASSIUM CHLORIDE 20 MEQ TAB.ER.PRT PO SCH (08:57)
[2020-01-26] MEDS: BUPRENORPHINE/NALOXONE 2-0.5MG SL SCH ×2 (08:59→20:32)
[2020-01-26] MEDS: NICOTINE GUM 4 MG BC PRN ×3 (09:04→20:35)
[2020-01-26] MEDS: DIVALPROEX 500 MG TABLET.DR PO SCH ×3 (09:23→20:32)
[2020-01-26 13:14] LABS: BASOPHILS % (AUTO) 1 % (0-1); EOSINOPHILS % (AUTO) 2 % (1-7); LYMPHOCYTES % (AUTO) 45 % (22-44); MEAN CORPUSCULAR HEMOGLOBIN 29.4 pg (27.5-34.5); MEAN CORPUSCULAR HGB CONC 33.8 g/dL (33.2-36.2); MEAN PLATELET VOLUME 6.6 fL (7.4-10.4); MONOCYTES % (AUTO) 5 % (2-9); NEUTROPHILS % (AUTO) 47 % (42-75); PLATELET COUNT 283 x10^3/uL (130-400); RED BLOOD COUNT 5.18 x10^6/uL (4.38-5.82); RED CELL DISTRIBUTION WIDTH 13.5 % (9.4-14.8)
[2020-01-26 13:16] LABS: MD NO
[2020-01-26 13:26] LABS: CHLORIDE 108 mmol/L (98-107)
[2020-01-26 13:35] LABS: ALANINE AMINOTRANSFERASE 16 U/L (12-78); ALBUMIN 3.2 g/dL (3.4-5.0); ALKALINE PHOSPHATASE 105 U/L (45-117); ANION GAP 6 mmol/L (5-15); BILIRUBIN,TOTAL 0.2 mg/dL (0.2-1.0); CALCIUM 8.6 mg/dL (8.5-10.1); CHOL/HDL RATIO 4.4; CHOLESTEROL, TOTAL 162 mg/dL (140-239); CREATININE 0.87 mg/dL (0.7-1.3); HDL CHOL % 23 % (26-37); HDL CHOLESTEROL (DIRECT) 37 mg/dL (40-60); LDL CHOLESTEROL,CALCULATED 69 mg/dL (54-169); LDL/HDL RATIO 1.9 (0.5-3.0); TOTAL PROTEIN 6.9 g/dL (6.4-8.2); TRIGLYCERIDES 278 mg/dL (50-200); VLDL CHOLESTEROL 56 mg/dL (0-25)
[2020-01-26] MEDS: QUETIAPINE 100MG TABLET PO SCH ×2 (13:58→20:32)
[2020-01-26 19:38] VITALS: BP 107/65
[2020-01-26] MEDS ORDERED: QUETIAPINE 200 MG TABLET PO SCH (21:00)
[2020-01-27 07:13] VITALS: BP 113/68
[2020-01-27] MEDS: NICOTINE GUM 4 MG BC PRN ×3 (07:33→17:50)
[2020-01-27] MEDS: ACETAMINOPHEN 325 MG TABLET PO PRN (08:26)
[2020-01-27] MEDS: HYDROXYZINE PAMOATE 25MG CAP PO PRN ×3 (08:26→20:28)
[2020-01-27] MEDS: BUPRENORPHINE/NALOXONE 2-0.5MG SL SCH ×2 (08:26→20:30)
[2020-01-27] MEDS: QUETIAPINE 100MG TABLET PO SCH ×2 (08:27→20:29)
[2020-01-27] MEDS: DIVALPROEX 500 MG TABLET.DR PO SCH ×3 (08:27→20:29)
[2020-01-27] MEDS: QUETIAPINE 200 MG TABLET PO SCH (16:26)
[2020-01-27 20:01] VITALS: BP 100/62
[2020-01-28] MEDS: NICOTINE GUM 4 MG BC PRN ×4 (00:18→23:12)
[2020-01-28 07:26] VITALS: BP 108/70
[2020-01-28] MEDS: DIVALPROEX 500 MG TABLET.DR PO SCH ×3 (08:30→20:46)
[2020-01-28] MEDS: QUETIAPINE 200 MG TABLET PO SCH ×3 (08:30→20:46)
[2020-01-28] MEDS: BUPRENORPHINE/NALOXONE 2-0.5MG SL SCH ×2 (08:30→20:46)
[2020-01-28] MEDS: ACETAMINOPHEN 325 MG TABLET PO PRN (08:45)
[2020-01-28 19:44] VITALS: BP 117/70
[2020-01-28] MEDS: HYDROXYZINE PAMOATE 25MG CAP PO PRN (20:46)
[2020-01-28] MEDS: QUETIAPINE 100MG TABLET PO SCH (20:46)
[2020-01-29] MEDS: NICOTINE GUM 4 MG BC PRN ×4 (06:36→20:39)
[2020-01-29 07:16] VITALS: BP 110/70
[2020-01-29] MEDS: QUETIAPINE 200 MG TABLET PO SCH ×2 (08:26→17:42)
[2020-01-29] MEDS: DIVALPROEX 500 MG TABLET.DR PO SCH ×3 (08:26→20:30)
[2020-01-29] MEDS: BUPRENORPHINE/NALOXONE 2-0.5MG SL SCH ×2 (08:27→20:30)
[2020-01-29 19:55] VITALS: BP 104/67
[2020-01-29] MEDS: QUETIAPINE 100MG TABLET PO SCH (20:30)
[2020-01-30] MEDS: NICOTINE GUM 4 MG BC PRN ×4 (02:24→17:57)
[2020-01-30 07:27] VITALS: BP 105/65
[2020-01-30] MEDS: DIVALPROEX 500 MG TABLET.DR PO SCH ×3 (08:28→20:29)
[2020-01-30] MEDS: BUPRENORPHINE/NALOXONE 2-0.5MG SL SCH ×2 (08:29→20:29)
[2020-01-30] MEDS: QUETIAPINE 200 MG TABLET PO SCH ×2 (08:30→17:57)
[2020-01-30 19:47] VITALS: BP_SYST 107; BP_SYST 126; BP_DIAS 69; BP_DIAS 78
[2020-01-30] MEDS: QUETIAPINE 100MG TABLET PO SCH (20:29)
[2020-01-31] MEDS: NICOTINE GUM 4 MG BC PRN ×5 (02:37→20:27)
[2020-01-31 07:18] VITALS: BP 105/62
[2020-01-31] MEDS: DIVALPROEX 500 MG TABLET.DR PO SCH ×3 (08:49→20:26)
[2020-01-31] MEDS: BUPRENORPHINE/NALOXONE 2-0.5MG SL SCH ×2 (08:49→20:27)
[2020-01-31] MEDS: QUETIAPINE 200 MG TABLET PO SCH ×2 (08:49→17:47)
[2020-01-31] MEDS: METHOCARBAMOL 750 MG TABLET PO PRN ×2 (12:51→20:27)
[2020-01-31 19:48] VITALS: BP 110/65
[2020-01-31] MEDS: QUETIAPINE 100MG TABLET PO SCH (20:27)
[2020-02-01] MEDS: NICOTINE GUM 4 MG BC PRN ×5 (00:26→17:31)
[2020-02-01] MEDS: HYDROXYZINE PAMOATE 25MG CAP PO PRN ×3 (05:27→20:34)
[2020-02-01] MEDS: METHOCARBAMOL 750 MG TABLET PO PRN ×3 (05:27→20:34)
[2020-02-01 07:30] VITALS: BP 110/72
[2020-02-01] MEDS: QUETIAPINE 200 MG TABLET PO SCH ×2 (08:37→17:30)
[2020-02-01] MEDS: BUPRENORPHINE/NALOXONE 2-0.5MG SL SCH ×2 (08:37→20:34)
[2020-02-01] MEDS: DIVALPROEX 500 MG TABLET.DR PO SCH ×3 (08:37→20:34)
[2020-02-01] MEDS ORDERED: HYDROXYZINE PAMOATE 50MG CAP ONE (14:13)
[2020-02-01 18:07] VITALS: BP 100/62
[2020-02-01] MEDS: QUETIAPINE 100MG TABLET PO SCH (20:34)
[2020-02-02] MEDS: NICOTINE GUM 4 MG BC PRN ×2 (02:04→08:48)
[2020-02-02 07:16] VITALS: BP 127/79
[2020-02-02] MEDS: DIVALPROEX 500 MG TABLET.DR PO SCH (08:48)
[2020-02-02] MEDS: BUPRENORPHINE/NALOXONE 2-0.5MG SL SCH (08:48)
[2020-02-02] MEDS: QUETIAPINE 200 MG TABLET PO SCH (08:58)
[2020-02-02] MEDS ORDERED: DIVA-61 PO (09:41)
[2020-02-02] MEDS ORDERED: QUET100T PO (09:41)
[2020-02-02] MEDS ORDERED: HYDR25CA94 PO (09:41)
[2020-02-02] MEDS ORDERED: QUET200T PO (09:41)
== END 2020-02-02 11:59 | disposition home or self-care (01) | DRG 885 ==
LOC: 3E 03:56
PROVIDERS: ADMIT Psychiatry & Neurology Psychosomatic Medicine; ATTEND Psychiatry & Neurology Psychosomatic Medicine
DX: F31.30 Bipolar disorder, current episode depressed, mild or moderate severity, unspecified (principal); F11.20 Opioid dependence, uncomplicated; F15.20 Other stimulant dependence, uncomplicated; F17.200 Nicotine dependence, unspecified, uncomplicated; F41.1 Generalized anxiety disorder; F60.9 Personality disorder, unspecified; Z59.0 Homelessness
CPT/HCPCS: 36415; J0572; 71045; 80053; 80061; 82607; 84439; 84443; 85025; Q0162

== ENCOUNTER 2020-04-18 21:29 | Emergency (ER) | payer MEDICAID ==
[~2020-04-18] VITALS: Ht 182.9 cm; Wt 92.0 kg
[~2020-04-18 21:29] MED LIST changes: +BUPR100T8 PO; +CARB200C5 PO; +DIVA-61 PO; +GABA-826 PO; +HYDR25CA94 PO; -OXYC5TAB3 PO; +OXYC5TAB98 PO; +PROP10TA51 PO; +QUET200T PO; +QUET25TA2 PO
[2020-04-18] MEDS ORDERED: METH750T87 PO (21:42)
[2020-04-18] MEDS ORDERED: THORAZINE PO (21:42)
--- NOTE | 2020-04-18 21:59 | NUR ---
Pt to ER, states feeling very anxious, and having SI, with plan to OD on heroin. Pt States having a lot going on in his life, not sleeping and feeling overwhelmed. Pt to secure Rm, in gown, belongings locked. UA provided and sent. Lab at bedside. Sitter outside room. Pt cooperative at this time. Water given. Will monitor.
[2020-04-18 22:11] LABS: MICROSCOPIC NOT IND
[2020-04-18 22:19] LABS: BASOPHILS % (AUTO) 1 % (0-1); EOSINOPHILS % (AUTO) 4 % (1-7); LYMPHOCYTES % (AUTO) 33 % (22-44); MEAN CORPUSCULAR HEMOGLOBIN 29.2 pg (27.5-34.5); MEAN CORPUSCULAR HGB CONC 34.1 g/dL (33.2-36.2); MEAN PLATELET VOLUME 7.1 fL (7.4-10.4); MONOCYTES % (AUTO) 7 % (2-9); NEUTROPHILS % (AUTO) 55 % (42-75); PLATELET COUNT 248 x10^3/uL (130-400); RED BLOOD COUNT 5.33 x10^6/uL (4.38-5.82); RED CELL DISTRIBUTION WIDTH 14.3 % (9.4-14.8)
[2020-04-18 22:20] LABS: ALANINE AMINOTRANSFERASE 409 U/L (12-78); ALBUMIN 3.7 g/dL (3.4-5.0); ANION GAP 9 mmol/L (5-15); CALCIUM 8.3 mg/dL (8.5-10.1); CHLORIDE 107 mmol/L (98-107); SALICYLATE LEVEL 2.1 mg/dL (2.8-20.0)
[2020-04-18 22:22] LABS: ALKALINE PHOSPHATASE 188 U/L (45-117); BILIRUBIN,TOTAL 0.5 mg/dL (0.2-1.0); TOTAL PROTEIN 7.4 g/dL (6.4-8.2)
[2020-04-18 22:23] LABS: AMPHETAMINE SCREEN, URINE Negative (Negative); BARBITURATE SCREEN, URINE Negative (Negative); BENZODIAZEPINE SCREEN, URINE Positive (Negative); CANNABINOID SCREEN, URINE Positive (Negative); COCAINE SCREEN, URINE Negative (Negative); METHADONE SCREEN, URINE Negative (Negative); OPIATE SCREEN, URINE Positive (Negative)
[2020-04-18 22:27] LABS: MD NO
[2020-04-18] MEDS ORDERED: LORazepam 1MG TABLET ONE (22:30)
[2020-04-18] MEDS ORDERED: LORazepam 1MG TABLET PO ONE (22:30)
--- NOTE | 2020-04-18 22:35 | NUR ---
Pt medicated per order. Snacks given. Will monitor.
[2020-04-18] MEDS ORDERED: ACETAMINOPHEN 325 MG TABLET PO ONE (23:00)
--- NOTE | 2020-04-18 23:18 | NUR ---
packet faxed to S[facility] DOUGH[facility], [place], [facility].
[2020-04-18] MEDS ORDERED: ACETAMINOPHEN 325 MG TABLET ONE (23:36)
--- NOTE | 2020-04-19 00:29 | NUR ---
U states they will accept patient, but they will not give him controlled substance. Pt aware and upset, stating he is here for treatment and is concerned for withdrawl. Provider aware. Pt with stable VS, remain calm and cooperative in bed at this time. Free of harm. Sitter outside room. Will continue to monitor.
--- NOTE | 2020-04-19 00:59 | NUR ---
Dee provided. Pt with no changes. Free of harm
--- NOTE | 2020-04-19 01:13 | NUR ---
SHIVANI WITH [facility] INTERESTED IN TAKING PT, INFORMED THAT [facility] CURRENTLY IS PLANNING TO. PT RESTING ON ISMA, GRECIA, NO CHANGE IN CONDITION, APPEARS COMFORTABLE, ROOM SECURED, SITTER IN LINE OF SIGHT, WCTM.
--- NOTE | 2020-04-19 01:25 | NUR ---
Met with pt to explain he would not be able to have controlled substances if admitted to [facility]. Pt very upset, swearing. States that he cannot accept this. Reports clonidine does not help him with opiate withdrawal. Reports he's been taking 10-30 mg. of xanax per day but forgot to tell ED staff. Worried about benzo withdrawal. Discussed with ED charge nurse.
--- NOTE | 2020-04-19 02:02 | NUR ---
Spoke with Karma at [place], facility to call doc and see if they can accept patient. Will wait to hear back.
--- NOTE | 2020-04-19 02:36 | NUR ---
Siddharth accepts. Accepting doctor is Dr. Longoria. [address] [place].
--- NOTE | 2020-04-19 03:28 | NUR ---
Pt calm in bed, resting, no changes, Free of harm. Juice given. Sitter outside room. Pt denies any needs at this time.
--- NOTE | 2020-04-19 06:10 | NUR ---
Pt continues to sleep. Calm and cooperative in bed. Denies any needs at this time. Sitter remains outside door. Pt free of harm. Will continue to monitor.
--- NOTE | 2020-04-19 07:14 | NUR ---
ASSUMED CARE OF PT. PT RESTING WITH EYES CLOSED IN DIRECT VIEW OF SITTER AND EQUIPMENT SECURED BEHIND PULL DOWN DOORS.
[2020-04-19 09:06] VITALS: BP 113/69
--- NOTE | 2020-04-19 09:08 | NUR ---
PT ATE BREAKFAST, VS UPDATED. AWAITING TX TO [facility]
--- NOTE | 2020-04-19 09:29 | NUR ---
[facility] AT BEDSIDE. REPORT GIVEN. PT GIVEN BELONINGS AND AMBULATED WITH TRANSPORT STAFF FROM ER
== END 2020-04-19 12:57 ==
LOC: ED 23:39
DX: F31.9 Bipolar disorder, unspecified (principal); R45.851 Suicidal ideations; F11.10 Opioid abuse, uncomplicated; F15.10 Other stimulant abuse, uncomplicated; F17.210 Nicotine dependence, cigarettes, uncomplicated; Z90.49 Acquired absence of other specified parts of digestive tract
CPT/HCPCS: 36415; 80053; 80299; 80307; 80320; 80329; 81003; 85025; 99285; 99406; G0480

== ENCOUNTER 2020-06-02 00:05 | Emergency (ER) | payer MEDICAID ==
[~2020-06-02] VITALS: Ht 182.9 cm; Wt 80.0 kg
[~2020-06-02 00:05] MED LIST changes: +METH750T87 PO; -QUET100T PO; +QUET100T2 PO; -QUET200T PO; +QUET200T2 PO; -QUET25TA2 PO; +QUET25TA3 PO; +THORAZINE PO
--- NOTE | 2020-06-02 00:27 | NUR ---
THIS IS A 29M BIB EMS FROM [facility], FOR SI AND DETOX FROM HEROIN AND XANAX. PER PT WANTS TO OD ON HEROIN AND EVERYTHING IS GOING BAD. UPON ARRIVAL TO ED PT AMBULATORY AND COOPERATIVE WITH STAFF. BELONGINGS LABELED AND PLACED IN LOCKER 3 BAGS TOTAL. PT CONNECTED TO MONITORING, URINE SAMPLE SENT TO LAB. PA AT BEDSIDE FOR EVAL.
[2020-06-02] MEDS ORDERED: PROMETHAZINE 25 MG/ML, 1ML IM ONE (00:30)
[2020-06-02] MEDS ORDERED: LORazepam 1MG TABLET PO ONE (00:30)
[2020-06-02 00:39] LABS: BASOPHILS % (AUTO) 1 % (0-1); EOSINOPHILS % (AUTO) 2 % (1-7); LYMPHOCYTES % (AUTO) 36 % (22-44); MEAN CORPUSCULAR HEMOGLOBIN 28.9 pg (27.5-34.5); MEAN CORPUSCULAR HGB CONC 34.1 g/dL (33.2-36.2); MEAN PLATELET VOLUME 6.5 fL (7.4-10.4); MONOCYTES % (AUTO) 6 % (2-9); NEUTROPHILS % (AUTO) 55 % (42-75); PLATELET COUNT 343 x10^3/uL (130-400); RED BLOOD COUNT 5.26 x10^6/uL (4.38-5.82)
[2020-06-02] MEDS ORDERED: LORazepam 1MG TABLET ONE (00:42)
[2020-06-02] MEDS ORDERED: PROMETHAZINE 25 MG/ML, 1ML ONE (00:42)
--- NOTE | 2020-06-02 00:45 | NUR ---
PT MEDICATED PER SYED JACOB DR CRUM TO BEDSIDE FOR EVAL AND POC. PT PROVIDED SNACKS AND WATER PER REQUEST. NO OTHER NEEDS AT THIS TIME.
[2020-06-02 00:48] LABS: ALBUMIN 3.5 g/dL (3.4-5.0); ANION GAP 5 mmol/L (5-15); CALCIUM 9.2 mg/dL (8.5-10.1); CHLORIDE 104 mmol/L (98-107)
[2020-06-02 00:49] LABS: CREATININE 0.81 mg/dL (0.7-1.3)
[2020-06-02 00:53] LABS: SALICYLATE LEVEL < 1.7 mg/dL (2.8-20.0)
[2020-06-02 00:57] LABS: AMPHETAMINE SCREEN, URINE Positive (Negative); BARBITURATE SCREEN, URINE Negative (Negative); BENZODIAZEPINE SCREEN, URINE Negative (Negative); CANNABINOID SCREEN, URINE Positive (Negative); COCAINE SCREEN, URINE Negative (Negative); METHADONE SCREEN, URINE Negative (Negative); OPIATE SCREEN, URINE Positive (Negative)
--- NOTE | 2020-06-02 01:30 | NUR ---
PT NOW RESTING COMFORTABLY ON GURNEY EYES CLOSED NO NEEDS AT THIS TIME RESP EVEN AND UNLABORED. PT REMAINS FREE FROM HARM
--- NOTE | 2020-06-02 02:27 | NUR ---
PT RESTING ON ISMA FLORIAN AT THIS TIME, PT FREE FROM HARM.
--- NOTE | 2020-06-02 02:52 | NUR ---
PT PACKET SENT TO [facility].
--- NOTE | 2020-06-02 03:03 | NUR ---
[facility] HAS DECLINED PT.
--- NOTE | 2020-06-02 03:04 | NUR ---
ARON REFUSED PT.
--- NOTE | 2020-06-02 03:05 | NUR ---
FAXED TO SANDRA OLSEN, [facility], [facility].
--- NOTE | 2020-06-02 03:27 | NUR ---
TP: ORIN FROM [facility] IS ABLE TO ACCEPT PT AT 0700. ACCEPTING MD IS DR SOLIS
--- NOTE | 2020-06-02 04:13 | NUR ---
PT CONTIUES TO REST ON TOMHOLLIS FLORIAN NO NEEDS AT THIS TIME SITTER IN SIGHT PT REMAINS FREE OF HARM
--- NOTE | 2020-06-02 04:39 | NUR ---
[facility] ETA 0700
--- NOTE | 2020-06-02 05:13 | NUR ---
PT CONTIUES TO REST ON TOMHOLLIS FLORIAN NO NEEDS AT THIS TIME SITTER IN SIGHT PT REMAINS FREE OF HARM
--- NOTE | 2020-06-02 06:11 | NUR ---
PT RESTING ON ISMA FLORIAN SITTER IN SIGHT FOR SAFETY AWAITING TRANSPORT TO [facility].
--- NOTE | 2020-06-02 06:42 | NUR ---
REPORT RECEIVED FROM CECILIA HIGHTOWER FOR TRANSFER OF PATIENT CARE.
--- NOTE | 2020-06-02 06:56 | NUR ---
PATIENT RESTING IN GURNEY WITH EYES CLOSED, RESP EVEN AND UNLABORED, VSS, SITTER IN LINE OF SIGHT. WAITING FOR PICKUP BY [facility]AL[facility].
--- NOTE | 2020-06-02 08:04 | NUR ---
BREAKFAST TRAY PROVIDED TO PATIENT, SYED FLORIAN, SITTER IN LINE OF SIGHT. WAITING FOR [facility] TO TRANSPORT TO [facility].
--- NOTE | 2020-06-02 09:10 | NUR ---
PATIENT RESTING IN GURNEY WITH EYES CLOSED, RESP EVEN AND UNLABORED, VSS, SITTER IN LINE OF SIGHT. WAITING FOR [facility]ANGULAR TANK COOPER TO TRANSFER TO [facility].
[2020-06-02 09:47] VITALS: BP 92/57
--- NOTE | 2020-06-02 09:48 | NUR ---
PATIENT DISCHARGED TO [facility] WITH EMS TRANSPORT, ALL PATIENT BELONGINGS, TOTAL OF 3 BAGS, TAKEN FROM LOCKED CABINET AND GIVEN TO EMS. ALL PAPERWORK GIVEN TO EMS, PATIENT AMBULATORY WITH STEADY GAIT FROM ED TO AMBULANCE WITH EMS AT BEDSIDE.
== END 2020-06-02 09:49 ==
LOC: ED 02:42
DX: R45.851 Suicidal ideations (principal)
CPT/HCPCS: 36415; 80048; 80299; 80307; 80320; 82040; 85025; 96372; 99285; J2550; 80329; G0480

== ENCOUNTER → 2020-09-06 | Emergency (ER) | payer MEDICAID ==
[~2020-09-06] VITALS: Ht 182.9 cm; Wt 85.2 kg
[~2020-09-06] MED LIST changes: +DIPHENHYDRAMINE 50 MG/ML, 1ML IM ONE; +HALOPERIDOL 5 MG/ML IM ONE; +LORazepam 1MG TABLET ONE; +LORazepam 1MG TABLET PO ONE; +LORazepam 2 MG/ML, 1ML IM ONE; +QUET100T PO; -QUET100T2 PO; +QUET200T PO; -QUET200T2 PO; +QUET25TA2 PO; -QUET25TA3 PO
--- NOTE | 2020-09-06 00:50 | NUR ---
THIS IS A 29M THAT COMES IN FOR SI, PT STS NO PLAN AT CURRENT TIME HOWEVER STS HAS HX OF OD ATTEMPT IN THE PAST. PT CHANGED INTO GOWN BELONGINGS LABELED AND PLACED IN LOCKER, PT ALSO HAS A WALKING STICK LABELED IN PLACED IN LOCKER. SITTER IN SIGHT. PT AGGITATED UPON ARRIVAL PER ERP PT MEDICATED PER MAR
--- NOTE | 2020-09-06 01:08 | NUR ---
BEDSIDE REPORT TO MARTHA BROOKS ALL QUESTIONS ADDRESSED TRANSFER OF CARE AT THIS TIME
--- NOTE | 2020-09-06 01:21 | NUR ---
RECEIVED REPORT FROM CAMPBELL BROOKS. TRANSFER OF CARE.
--- NOTE | 2020-09-06 01:45 | NUR ---
PT RESTING IN BED. PT STATES HE DOES NOT NEED ANYTHING AT THIS TIME. PT REFUSED LABS EARLIER AND THIS NURSE IS GOING IN TO SEE IF HE WILL ALLOW US TO DRAW BLOOD THIS TIME. BREATHING EVEN AND UNLABORED. NADN. PT IS AWAKE. WCTM. SAFET PRECAUTIONS IN PLACE.
--- NOTE | 2020-09-06 01:49 | NUR ---
PT ALLOWING TOOL DIE MAKER TO DRAW BLOOD.
[2020-09-06 02:03] LABS: BASOPHILS % (AUTO) 1 % (0-1); EOSINOPHILS % (AUTO) 3 % (1-7); LYMPHOCYTES % (AUTO) 21 % (22-44); MEAN CORPUSCULAR HEMOGLOBIN 29.9 pg (27.5-34.5); MEAN CORPUSCULAR HGB CONC 34.5 g/dL (33.2-36.2); MEAN PLATELET VOLUME 6.9 fL (7.4-10.4); MONOCYTES % (AUTO) 7 % (2-9); NEUTROPHILS % (AUTO) 68 % (42-75); PLATELET COUNT 222 x10^3/uL (130-400); RED BLOOD COUNT 5.03 x10^6/uL (4.38-5.82); RED CELL DISTRIBUTION WIDTH 14.5 % (9.4-14.8)
[2020-09-06 02:07] LABS: ALANINE AMINOTRANSFERASE 24 U/L (12-78); ALBUMIN 3.3 g/dL (3.4-5.0); ANION GAP 4 mmol/L (5-15); CALCIUM 8.5 mg/dL (8.5-10.1); CHLORIDE 101 mmol/L (98-107); CREATININE 0.74 mg/dL (0.7-1.3); SALICYLATE LEVEL 2.3 mg/dL (2.8-20.0)
[2020-09-06 02:09] LABS: ALKALINE PHOSPHATASE 102 U/L (45-117); BILIRUBIN,TOTAL 0.3 mg/dL (0.2-1.0); TOTAL PROTEIN 7.1 g/dL (6.4-8.2)
--- NOTE | 2020-09-06 03:08 | NUR ---
PT RESTING IN BED AWAKE. BREATHING EVEN AND UNLABORED. NADN. NO ADDITIONAL NEEDS AT THIS TIME. NO BEHAVIORAL OR EMOTIONAL OUTBURSTS. SAME SAFETY PRECAUTIONS IN PLACE. WCTM
--- NOTE | 2020-09-06 04:11 | NUR ---
PT RESTING IN BEd. eyes closed. BREATHING EVEN AND UNLABORED. NADN. NO ADDITIONAL NEEDS AT THIS TIME. NO BEHAVIORAL OR EMOTIONAL OUTBURSTS. SAME SAFETY PRECAUTIONS IN PLACE. WCTM
--- NOTE | 2020-09-06 04:38 | NUR ---
called and spoke to housekeeping for hospital bed.
--- NOTE | 2020-09-06 05:41 | NUR ---
pt given hospital bed. bed in low position, rails engaged. breathing even and unlabored. a&ox4, nadn. safety precautioons put into place. wctm
--- NOTE | 2020-09-06 05:46 | NUR ---
PIPE ORGAN BUILDER: PACKET FAXED TO [facility], [facility]. AWIAITING CONFIRMATION FAX.
--- NOTE | 2020-09-06 06:15 | NUR ---
this nurse asked pt if he could urinate but pt refused and said he did not have to. gave pt a urinal to urinate when he is ready.
--- NOTE | 2020-09-06 06:16 | NUR ---
TP: [facility] FROM [facility] CALLED AND PT TO BE ACCEPTED TO [facility] BY DR SOLIS.
--- NOTE | 2020-09-06 06:25 | NUR ---
spoke to [facility] nurse about pt acceptance
--- NOTE | 2020-09-06 06:59 | NUR ---
GAVE REPORT TO MAHI BROOKS. TRANSFER OF CARE.
--- NOTE | 2020-09-06 07:00 | NUR ---
report received from CECILIA Cedeño, this RN assuming care. pt sleeping on hospital bed, resps even and unlabored. room secure. sitter monitoring from [facility] for safety.
--- NOTE | 2020-09-06 07:29 | NUR ---
report given to [facility] CECILIA marcano who confirms [facility] will be accepting this patient, accepting physician is MD Espinosa. contact number [phone] provided.
--- NOTE | 2020-09-06 08:00 | NUR ---
pt sleeping on hospital bed, resps even and unlabored. room secure. sitter monitoring from hallway for safety.
--- NOTE | 2020-09-06 08:30 | NUR ---
THROUGH PUT RN: SPOKE WITH KAL AT [facility], TO ARRANGE TRANSPORT TO [facility].
[2020-09-06 08:45] VITALS: BP 105/65
--- NOTE | 2020-09-06 08:47 | NUR ---
pt awakened for assessment, pt a&o, resps even and unlabored. pt endorses suicidal thoughts, states he has no plan. pt denies pain. no abd tenderness, states lbm yesterday, denies difficulty voiding. pt has not voided since arrival, urinal at bedside. pt instructed to provide urine sample when able. room secure. sitter monitoring from hallway for safety. pt denies needs. pt on hospital bed.
--- NOTE | 2020-09-06 09:28 | NUR ---
[facility] CECILIA Roberts notified pt has failed to provide urine sample so far for urine drug screen. CECILIA Roberts states "that is fine, we always collect urine here regardless."
--- NOTE | 2020-09-06 09:36 | NUR ---
breakfast tray previously ordered, has not arrived. tray re-ordered, dietary called to confirm receipt of order. dietary confirms they are processing order.
--- NOTE | 2020-09-06 09:38 | NUR ---
breakfast tray previously ordered, has not arrived. tray re-ordered, dietary called to confirm receipt of order. dietary confirms they are processing order.
--- NOTE | 2020-09-06 09:50 | NUR ---
[facility] ARRIVED TO COLLECT PT, PT BELONGINGS GIVEN TO TRANSPORT STAFF. PT BELONINGS GIVEN TO [facility] STAFF FOLLOWS: SHOES X 2, PANTS, SHIRT, HAT, WALLET, CELL PHONE, WALKING STAFF. PT GIVEN WATER PRIOR TO TRANSPORT, TOLERATED WELL WITH NO S/SX ASPIRATION. PT TRANSPORTED TO [facility] WITHOUT INCIDENT.
== END ==
LOC: ED 00:54 → UNDOADMOB 02:51 → EDIP 02:51
DX: R45.851 Suicidal ideations (principal); F17.200 Nicotine dependence, unspecified, uncomplicated; Z90.49 Acquired absence of other specified parts of digestive tract
CPT/HCPCS: 36415; 80053; 80299; 80320; 80329; 85025; 99285; G0480